=== PATIENT | male | born 1990 | race American Indian/Alaskan Native ===

== ENCOUNTER 2018-01-11 19:34 | Emergency (ER) | payer OTHER ==
[2018-01-11 19:56] VITALS: BP 103/64
[2018-01-11] MEDS ORDERED: MOTRIN PO ONE (21:05)
[2018-01-11] MEDS ORDERED: MOTRIN ONE (21:08)
--- NOTE | 2018-01-11 23:23 | Emergency Department Report ---
ED Laceration [facility] Chief Complaint: Wound/Laceration Stated Complaint: CUT HAND Time Seen by Provider: 01/11/18 23:17 Location: Upper Extremity Severity: mild Tetanus Status: Up to Date Laceration Symptoms: Yes Pain, No Foreign Body Sensation, No Numbness, No Weakness Other History: 27-year-old -[place] male comes in with right thumb laceration to the dorsum side. Patient reports that he was washing dishes and cut his hand on a knife. Patient has no other problems or concerns at this time. He reports he had a tetanus shot 3 months ago. ED Review of Systems ROS: Stated complaint: CUT HAND Other details as noted in HPI Skin: other (cut on right thumb) ED Past Medical Hx - Past Medical History Previous Medical History?: No - Surgical History Past Surgical History?: No - Social History Smoking Status: Never Smoker Substance Use Type: None - Medications Home Medications: Home Medications Medication Instructions Recorded Confirmed Last Taken Type Cephalexin [Keflex] 500 mg PO BID #20 capsule 01/11/18 Unknown Rx Ibuprofen [Motrin 800 MG tab] 800 mg PO Q8HR PRN #30 tablet 01/11/18 Unknown Rx Laceration Physical Exam - Exam General: Vital signs noted. No distress. Alert and acting appropriately. Wound Length (cm): 3 Laceration Location: Upper Extremity (right thumb dorsum side) Laceration Exam: Yes Normal Distal CMS, No Foreign Body, No Exposed Tendon, Vessel, or Nerve, No Tendon Injury ED Course Vital Signs 01/11/18 19:52 Temperature 98.2 F Pulse Rate 93 H Respiratory 16 Rate Blood Pressure 103/64 O2 Sat by Pulse 98 Oximetry - Laceration /Wound Repair Right Dorsal Finger Wound Location: upper extremity (right dorsal thumb) Wound Length (cm): 3 Wound's Depth, Shape: superficial Wound Explored: clean Irrigated w/ Saline (ccs): 500 Betadine Prep?: Yes Anesthesia: 1% Lidocaine Volume Anesthetic (ccs): 4 Wound Debrided: minimal Wound Repaired With: sutures Suture Size/Type: 4:0 Number of Sutures: 6 Layer Closure?: No Sterile Dressing Applied?: Yes Progress: Patient tolerated procedure well - Nerve Block Consent Obtained: verbal consent Time Out Performed: Yes Local Anesthetic Used: Lidocaine 2% Amount of anesthesia used: 4 Side: right Nerve Blocks: digital Procedure Successful: Yes Complications: none Patient Tolerated Procedure: well Additional Comments: Nerve block to the right thumb ED Medical Decision Making - Medical Decision Making Patient has been evaluated by this provider in fast track. Discussed with patient that I would need to suture his thumb. Discussed with patient not place him on ibuprofen and Keflex for him to return back in 5-7 days. Patient verbalizes understanding. Critical care attestation.: If time is entered above; I have spent that time in minutes in the direct care of this critically ill patient, excluding procedure time. ED Disposition Clinical Impression: Laceration of right thumb Qualifiers: Encounter type: initial encounter Damage to nail status: without damage Foreign body presence: unspecified Qualified Code(s): S61.011A - Laceration without foreign body of right thumb without damage to nail, initial encounter Disposition: TO HOME OR SELFCARE Is pt being admited?: No Does the pt Need Aspirin: No Condition: Stable Instructions: Suture Care (ED), Laceration (ED) Additional Instructions: Please keep sutures clean and dry. Complete antibiotics as prescribed. Return back to the emergency room is 5-7 days to have sutures removed. Prescriptions: Cephalexin [Keflex] 500 mg PO BID #20 capsule Ibuprofen [Motrin 800 MG tab] 800 mg PO Q8HR PRN #30 tablet PRN Reason: Pain Referrals: MAHAD GRULLON MD [Primary Care Provider] - 3-5 Days Forms: Work/School Release Form(ED), Accompanied Note
== END 2018-01-11 23:30 | disposition home or self-care (01) ==
LOC: ED 19:34
DX: S61.011A Laceration without foreign body of right thumb without damage to nail, initial encounter (principal); W26.0XXA Contact with knife, initial encounter; Y93.G1 Activity, food preparation and clean up; Y92.89 Other specified places as the place of occurrence of the external cause; Y99.8 Other external cause status
CPT/HCPCS: 99282